=== PATIENT | female | born 1980 | race Caucasian/White ===

== ENCOUNTER 2017-01-12 14:56 | Inpatient (IN) | payer SELFPAY ==
[~2017-01-12] VITALS: Ht 179.1 cm; Wt 88.2 kg
[2017-01-12 16:09] VITALS: BP 121/84; PULSE 84
--- NOTE | 2017-01-12 17:13 | RADRPT ---
PROCEDURE: US bilateral lower extremity veins. CLINICAL INDICATION: Bilateral leg pain and swelling. The patient is 35 weeks . TECHNIQUE: Multiple longitudinal and transverse images of the bilateral lower extremity veins were obtained with renee scale and color Doppler imaging. The common femoral vein, femoral vein, and popl iteal vein were evaluated. 2D grayscale measurements with compression sonography, color Doppler, and pulsed Doppler with augmentation. COMPARISON: No prior studies are available for comparison. FINDINGS: The right common femoral, femoral and popliteal veins are normally compressible throughout. Color f low demonstrates normal filling of the vessels. Normal waveforms are visualized and there is normal response to augmentation. On the left side, there is lack of flow and lack of compressibility involving the common femoral vei n, femoral vein, and popliteal vein. The veins are dilated and contain echogenic thrombus. IMPRESSION: 1. Normal deep venous system of the right lower extremity. 2. Extensive acute deep venous thrombosis of the left lower extremity involving the common femoral vein, femoral vein, and popliteal vein. Call report: A preliminary call report of the findings was made to the patient's nurse Courtney on 01/12/2017 at 1700 hours. RPTAT: QQ .Stan Ordonez MD, MD Date Time Electronically viewed and signed by .Stan Ordonez MD, MD on 01/12/2017 17:13 .R/
--- NOTE | 2017-01-12 17:31 | TRIAGE ---
OB Triage Datetime Report Generated by CPN: 01/12/2017 17:31 Datetime: 01/12/2017 16:52 Time of Arrival: 01/12/2017 15:00 Chief Complaint: PAIN ON LT CALF,FROM LEFT GROIN DOWN THE TIP OF HER TOES,BILATERAL PEDAL EDEMA NO CHARU Movement: Present Contractions: Denies/Absent Contractions: NONE PALPATED Rupture of Membranes: Denies Vaginal Bleeding: None Vaginal Discharge: Present Recent Sexual Intercouse: Denies Abdominal Trauma: Not Applicable Patient Complaints: Other Time Provider Notified: 01/12/2017 15:30 Initial Plan: EFM,V/S Datetime: 01/12/2017 15:50 Labor Evaluation Frequency: 0 Monitor Mode: External Resting Tone Holiday: Relaxed Heart Rate FHR Baseline Rate: 140 Monitor Mode: External US Datetime: 01/12/2017 15:16 Stage of : OB Triage Assessment Type: Triage Maternal Assessment Level of Consciousness: Fully Conscious DTR's/Clonus: DTRs 2+; No Clonus Headache: Denies Blurred Vision: No Respiratory Effort: Unlabored; Regular Rhythm; Equal Expansion Breath Sounds, Left: Clear and Equal Breath Sounds, Right: Clear and Equal Nausea/Vomiting: Denies RUQ Epigastric Pain: Denies Lower Extremities Edema: None Degree: None Upper Extremities Edema: None Degree: 3+ Facial Edema: None Temperature Route: Axillary Fall Risk Assessment History of Falling: (0) No Secondary Diagnosis: (0) No Ambulatory Aid: (0) Bedrest/Nurse Assist IV Therapy: (0) No Gait: (0) Normal/Bedrest/Immobile Mental Status: (0) Oriented to Own Ability Fall Score: 0 Fall Risk Score Definition: No Risk: No action required
--- NOTE | 2017-01-12 17:37 | HP ---
Date/Time of Note Date/Time of Note DATE: 01/12/17 TIME: 17:23 OB - History Hx of Present Free Text/Dictation 36 y.o. with an IUP at 35 weeks 1 day sent in to the hospital from the office to rule out a deep vein thrombosis in her left leg as the entire leg, upper and lower, is very swollen and very tender. Pt has a baby for adoption and just returned from [place] last night to stay until delivery of her baby. She is accompanied by the adopting father. Pt was hospitalized twice recently for extreme nausea and vomiting and was just discharged last week. Apparently she was at home not ingesting much fluids and not moving around much to minimize the issues with the nausea and vomiting and says the leg pain started yesterday before she got on the plane. Pt reports the baby moving normally. She denies any shortness of breath. Chief Complaint: , severe swelling and pain of left leg Estimated Due Date: Feb 15, 2017 : 10 Para: 9 Care: Limited Care Ultrasounds: Normal mid trimester US Obstetrical Complications: None Medical Complications: None Other Concerns: PMHx: none. PSHx: none. NKDA. Past Family/Social History * Past Medical, Surgical, Family and Obstetric Histories reviewed from chart. Blood Type: A+ Rubella: immune RPR/VDRL: Negative GBS Status: Unknown HBsAG: Negative OB Admission Exam Vital Signs Vital Signs Vital Signs Date Time Temp Pulse Resp B/P Pulse Ox O2 Delivery O2 Flow Rate FiO2 01/12/17 16:09 98.0 84 121/84 High Flow Physical Exam HEENT: WNL Heart: Rhythm Normal Lungs: Clear Abdomen: WNL Extremities: Other (Severe swelling and pain of entire left leg) Cervical Dilatation: other (Deferred) Heart Rate: 140's Accelerations: Accelerations Present Decelerations: No Decelerations Varibility: Moderate Contractions on Admission: None Last 72 hours Lab Results Verbal doppler study results consistent with a DVT OB Assessment/Plan Reason for admission: other (Deep vein thrombosis of the left leg) Other plan: Spoke to the Hospitalist, Dr Nino, and either he or the next hospitalist to follow will see the pt promptly to initiate heparin therapy. IV hydration. D-Dimers. Bedrest. JAVIER FREITAS MD Jan 12, 2017 17:33
[2017-01-12] MEDS: LACTATED RINGER'S 1,000 ML IV SCH ×2 (17:42→22:43)
[2017-01-12] MEDS ORDERED: FAMO20TA18 PO (18:35)
[2017-01-12] MEDS ORDERED: ZOF8 PO (18:37)
--- NOTE | 2017-01-12 19:22 | CONS ---
Date/Time of Note Date/Time of Note DATE: 01/12/17 TIME: 19:15 Assessment/Plan Assessment/Plan Chief Complaint/Hosp Course 1. Left lower extremity DVT in a patient with a gestation at 35 weeks -No clinical evidence of PE at this time -Start Lovenox, patient to be discharged with Lovenox 1 mg/kg subcu every 12 hours until her is completed and then she can transition to Xarelto or Eliquis for 3 months as she is not planning on breast-feeding -Nurse informed to educate patient on how to self administer Lovenox and patient does understand that she will be self administering Lovenox -Of note patient's child is to be adopted Prophylaxis: Lovenox Problems: Consultation Date/Type/Reason Admit Date/Time Jan 12, 2017 at 17:15 Hx of Present Illness Patient is a 36-year-old female with no significant medical history. Patient has had 10 prior pregnancies and is currently 35 weeks . Patient developed left lower extremity swelling over the past 2 days patient has no history of such swelling. Ultrasound does confirm DVT, patient denies any chest pain or shortness of breath. Patient has no history of DVT in the past, patient has no other acute complaints at this time. Constitutional: improved, no complaints Eyes: no complaints ENT: no complaints Respiratory: no complaints Cardiovascular: no complaints Gastrointestinal: no complaints Genitourinary: no complaints Musculoskeletal: swelling (Left leg) Skin: no complaints Neurologic: no complaints Endocrine: no complaints Lymphatic: no complaints Psychological: nl mood/affect, no complaints Immunologic: no complaints Past Medical History Medical History: no pertinent history Family History Significant Family History: no pertinent family hx Social History Alcohol Use: rarely Smoking Status: Former smoker Drug Use: none Exam/Review of Systems Vital Signs Vitals Vital Signs Date Time Temp Pulse Resp B/P Pulse Ox O2 Delivery O2 Flow Rate FiO2 01/12/17 16:09 98.0 84 121/84 High Flow Exam Constitutional: alert, oriented Head: normocephalic Respiratory: clear to auscultation Cardiovascular: regular rate and rhythm Gastrointestinal: soft, No distended Musculoskeletal: nl extremities to inspection Medications Medications Current Medications Lactated Ringer's (Lr) 1,000 ml @ 125 mls/hr Q8H IV Last administered on t 17:42; Admin Dose 125 MLS/HR; Start 01/12/17 at 15:30 CONRADO GARRETT Jan 12, 2017 19:22
[2017-01-12] MEDS ORDERED: NACL 0.9% 3 ML SYG IV SCH (19:30)
[2017-01-12] MEDS ORDERED: ACETAMINOPHEN 500 MG TAB PO PRN (20:00)
[2017-01-12] MEDS ORDERED: ONDANSETRON 4 MG INJ IV PRN (20:00)
[2017-01-12] MEDS: morphine 2 MG INJ IV PRN (20:26)
[2017-01-12] MEDS: ENOXAPARIN 100 MG/ML SYG SC SCH (21:09)
[2017-01-12] MEDS ORDERED: AL HYDROX/MG HYDROX/SIMETH 30 ML CUP PO PRN (22:00)
--- NOTE | 2017-01-12 22:17 | QN ---
Documentation Comment Note: Pt repoprts that she was notified by the [facility] in [place] today that she tested positive for syphilis and she needed to get 3 shots of Penicillin. Pt told them she was in [place]. Pt was screened in October by me and had a negative RPR. Pt reports she had syphilis about 10 years ago and she and her partner were treated. She has not had sex since she was here last, nor for several months prior. Will repeat the RPR and do a FTA-ABS in the AM. JAVIER FREITAS MD Jan 12, 2017 22:17
[2017-01-12] MEDS ORDERED: CITRIC ACID/NA CITRATE 30 ML CUP ONE (22:25)
[2017-01-12] MEDS: CITRIC ACID/NA CITRATE 30 ML CUP PO SCH (22:44)
[2017-01-12] MEDS: ZOLPIDEM 5 MG TAB PO PRN (22:45)
[2017-01-13] MEDS: morphine 2 MG INJ IV PRN ×9 (04:09→22:22)
[2017-01-13 06:20] LABS: BASOPHILS % 0.4 % (0.0-2.0); EOSINOPHILS # 0.2 10^3/ul (0.0-0.5); EOSINOPHILS % 2.1 % (0.0-7.0); HEMATOCRIT 31.3 % (37.0-47.0); HEMOGLOBIN 10.2 g/dl (12.0-16.0); LYMPHOCYTES # 1.2 10^3/ul (0.8-2.9); LYMPHOCYTES % 16.8 % (15.0-51.0); MEAN CORPUSCULAR HEMOGLOBIN 27.9 pg (29.0-33.0); MEAN CORPUSCULAR HGB CONC 32.6 g/dl (32.0-37.0); MEAN CORPUSCULAR VOLUME 85.8 fl (82.0-101.0); MEAN PLATELET VOLUME 9.5 fl (7.4-10.4); MONOCYTE # 0.5 10^3/ul (0.3-0.9); MONOCYTES % 6.5 % (0.0-11.0); NEUTROPHIL # 5.1 10^3/ul (1.6-7.5); NEUTROPHILS % 72.1 % (39.0-77.0); PLATELET COUNT 237 10^3/UL (140-415); RED BLOOD COUNT 3.65 10^6/ul (4.20-5.40); RED CELL DISTRIBUTION WIDTH 14.2 % (11.5-14.5); WHITE BLOOD COUNT 7.1 10^3/ul (4.8-10.8)
[2017-01-13 06:58] LABS: ALBUMIN 2.5 g/dl (3.3-4.9); ALBUMIN/GLOBULIN RATIO 0.8; BILIRUBIN,INDIRECT 0.2 mg/dl (0-1.1); BILIRUBIN,TOTAL 0.2 mg/dl (0.2-1.3); CALCIUM 8.5 mg/dl (8.4-10.2); CREATININE 0.56 mg/dl (0.44-1.00); MAGNESIUM 1.4 mg/dl (1.7-2.5); PHOSPHORUS 2.9 mg/dl (2.5-4.9); POTASSIUM 3.3 mmol/L (3.5-5.1); TOTAL PROTEIN 5.6 g/dl (6.1-8.1)
[2017-01-13] MEDS: LACTATED RINGER'S 1,000 ML IV SCH ×2 (07:46→17:28)
[2017-01-13 08:14] VITALS: Ht 179.1 cm; Wt 88.2 kg
[2017-01-13 08:33] VITALS: BP 110/64; PULSE 76
[2017-01-13] MEDS: ENOXAPARIN 100 MG/ML SYG SC SCH ×2 (09:18→21:29)
[2017-01-13] MEDS ORDERED: POTASSIUM CHLORIDE (SR) 20 MEQ TAB PO STA (09:44)
[2017-01-13] MEDS ORDERED: MAGNESIUM SULFATE 4 GM/100 ML 100 ML IVPB ONE (10:00)
--- NOTE | 2017-01-13 14:15 | PN ---
Date/Time of Note Date/Time of Note DATE: 01/13/17 TIME: 14:13 Assessment/Plan VTE Prophylaxis VTE Prophylaxis Intervention: LMWH Lines/Catheters IV [facility] Peripheral IV Assessment/Plan Chief Complaint/Hosp Course 1. Left lower extremity DVT in a patient with gestation at 35 weeks -No clinical evidence of PE at this time -Continue therapeutic Lovenox, patient to be discharged with Lovenox 1 mg/kg subcu every 12 hours until her is completed and then she can transition to Xarelto or Eliquis for 3 months as she is not planning on breast- feeding -Nurse informed to educate patient on how to self administer Lovenox and patient does understand that she will be self administering Lovenox -Of note patient's child is to be adopted -Have consulted vascular surgery with Dr. Lomas for possible thrombectomy if indicated Prophylaxis: Lovenox Problems: Subjective 24 Hr Interval Summary Musculoskeletal: swelling (Left leg) Exam/Review of Systems Vital Signs Vitals Vital Signs Date Time Temp Pulse Resp B/P Pulse Ox O2 Delivery O2 Flow Rate FiO2 01/13/17 08:33 98.1 76 110/64 01/12/17 16:09 High Flow Intake and Output 01/12/17 01/12/17 01/13/17 15:00 23:00 07:00 Intake Total 1138 ml 995 ml Output Total 370 ml 100 ml Balance 768 ml 895 ml Exam Constitutional: alert, oriented Respiratory: clear to auscultation Gastrointestinal: soft, No distended Musculoskeletal: No nl extremities to inspection (Left leg swelling) Results Result Diagram: 01/13/17 0527 01/13/1727 Results 24 hrs Laboratory Tests Test 01/13/17 05:27 White Blood Count 7.1 Red Blood Count 3.65 L Hemoglobin 10.2 L Hematocrit 31.3 L Mean Corpuscular Volume 85.8 Mean Corpuscular Hemoglobin 27.9 L Mean Corpuscular Hemoglobin Concent 32.6 Red Cell Distribution Width 14.2 Platelet Count 237 Mean Platelet Volume 9.5 Neutrophils % 72.1 Lymphocytes % 16.8 Monocytes % 6.5 Eosinophils % 2.1 Basophils % 0.4 Nucleated Red Blood Cells % 0.0 Neutrophils # 5.1 Lymphocytes # 1.2 Monocytes # 0.5 Eosinophils # 0.2 Basophils # 0.0 Nucleated Red Blood Cells # 0.0 Sodium Level 132 L Potassium Level 3.3 L Chloride Level 104 Carbon Dioxide Level 20 L Anion Gap 11 Blood Urea Nitrogen 3 L Creatinine 0.56 Glucose Level 71 Hemoglobin A1c 4.9 Calcium Level 8.5 Phosphorus Level 2.9 Magnesium Level 1.4 L Total Bilirubin 0.2 Direct Bilirubin 0.00 Indirect Bilirubin 0.2 Aspartate Amino Transf (AST/SGOT) 11 L Alanine Aminotransferase (ALT/SGPT) 27 Alkaline Phosphatase 172 H Total Protein 5.6 L Albumin 2.5 L Globulin 3.10 Albumin/Globulin Ratio 0.80 Medications Medications Current Medications Lactated Ringer's (Lr) 1,000 ml @ 125 mls/hr Q8H IV Last administered on 07:46; Admin Dose 125 MLS/HR; Start 01/12/17 at 15:30 Enoxaparin Sodium (Lovenox) 90 mg Q12 SC Last administered on 01/13/17 09:18; Admin Dose 90 MG; Start 01/12/17 at 21:00 Ondansetron HCl (Zofran Inj) 4 mg Q6H PRN IV NAUSEA AND/OR VOMITING Last administered on 01/12/17 20:25; Admin Dose 4 MG; Start 01/12/17 at 20:00 Morphine Sulfate (morphine) 2 mg Q4H PRN IV SEVERE PAIN LEVEL 7-10 Last administered on 01/13/17 09:22; Admin Dose 2 MG; Start 01/12/17 at 20:00 Acetaminophen (Tylenol Tab) 500 mg Q6H PRN PO PAIN AND OR ELEVATED TEMP; Start 01/12/17 at 20:00 Al Hydrox/Mg Hydrox/Simethicone (Mag-Al Plus) 30 ml Q4H PRN PO GASTROINTESTINAL UPSET; Start 01/12/17 at 22:00 Citric Acid/ Sodium Citrate (Bicitra) 30 ml BID PO Last administered on 22:44; Admin Dose 30 ML; Start 01/13/17 at 21:00 Zolpidem Tartrate (Ambien) 10 mg HS PRN PO INSOMNIA Last administered on 22:45; Admin Dose 10 MG; Start 01/12/17 at 22:00 Influenza Virus Vaccine (Fluzone) 0.5 ml ONCE ONCE IM* ; Start 9/28/17 at 09:00 ; Stop 01/14/17 at 09:01 CONRADO GARRETT Jan 13, 2017 14:15
[2017-01-13 14:21] LABS: BARBITURATES Negative (NEGATIVE); BENZODIAZEPINES Negative (NEGATIVE); CANNABINOIDS Positive (NEGATIVE); COCAINE Negative (NEGATIVE); OPIATES Positive (NEGATIVE)
--- NOTE | 2017-01-13 19:04 | CONS ---
DATE OF ADMISSION: 01/12/2017 DATE OF CONSULTATION: 01/13/2017 REASON FOR CONSULTATION: For recommendations regarding left lower extremity DVT in this 36-year-old woman who is 35 weeks' . HISTORY OF PRESENT ILLNESS: This is a very pleasant 36-year-old, otherwise healthy woman who has had 10 prior pregnancies. She is currently 35 weeks' and went to see her DEVELOPMENTAL WRITING INSTRUCTOR yesterday with a swollen left leg and some pain in the left groin and was found to have a DVT involving the left common femoral and popliteal veins. She was admitted and started on subcu Lovenox 90 mg/kg b.i.d. last night. She got this last night and then this morning. She is otherwise healthy. She denies any other medical issues. She has never had any history of clotting abnormalities. She has had 10 prior pregnancies and never had any trouble with clotting during any of them. She had no history of varicose veins and she denies having any history of significant swelling in the left leg. MEDICATION: Currently consist of Lovenox 98 mg subcu b.i.d. It is 1 mg/kg subcu b.i.d. dose. PAST SURGICAL HISTORY: She has never had any surgery in the past. SOCIAL HISTORY: She lives in [place]. She came here because she is going to put the baby up for adoption. I think she is coming to deliver here for the adoptive family. She drinks alcohol rarely. She is a former smoker. Not currently. FAMILY HISTORY: Noncontributory. REVIEW OF SYSTEMS: She currently denies any chest pain, shortness of breath. No nausea, vomiting, diarrhea. No fever, no chills. No recent weight gain, no weight loss. She was having some nausea and vomiting last week, and became dehydrated and actually did go to the emergency room and was in the hospital, I believe it was in [place] prior to all this happening. PHYSICAL EXAMINATION: GENERAL: She is a middle-aged woman. She is an [place] speaker. She is in no distress. VITAL SIGNS: She has been afebrile. Her blood pressure is 110/64, heart rate 76, respiratory rate is 20. She has 2+ carotid pulses bilaterally, 2+ radial and brachial pulses bilaterally. LUNGS: Clear. HEART: Regular rate and rhythm. ABDOMEN: Gravid. EXTREMITIES: She has 2+ femoral, popliteal, DP and PT pulses bilaterally on the right. There is no edema. On the left, she has 2 to 3+ edema from the thigh all the way down to the foot. The compartments of the calf and the foot are all very soft. Thigh is very soft although edematous. She has normal motor and sensory function in the foot. The toes are warm and pink and well perfused and again a very strong pedal pulses bilaterally. She has no difficulty moving the leg. She just kind of complains of a dull ache throughout the left leg. She currently is not in any compression. Again, I reviewed her venous duplex scan, which shows normal right lower extremity. And on the left there is an acute DVT from the common femoral down into the popliteal, it is fully occlusive. IMPRESSION AND PLAN: Acute left femoral and popliteal vein deep venous thrombosis. It does not involve the pelvic veins and I recommend continuing the Lovenox for now. I think once she gets closer to delivery she probably needs to be admitted again and started on heparin. I have given the orders for the nurse to apply 2 layers of thigh-high the thromboembolic deterrent stockings to the left leg, it would approximate 30-40 mm of compression which is what she should be in. I have recommended she keep the left leg elevated when in bed on several pillows to help decrease the edema along with the stockings and then for today, I would keep her on bed rest and tomorrow after she has been adequately anticoagulated for more than 24 hours then she should get up and ambulate and from then on either be ambulating or in bed with the leg elevated and no sitting or keeping the leg down. I discussed that at length with her and she understands. There is no indication for a vena cava filter and she is not to be kept on strict bed rest. She should get up and ambulate. It would lower the incidence of pulmonary embolus and helped the thrombus resolve more quickly. She will need to stay on anticoagulation for a good 6 months after delivery, at that point she could be transitioned to Coumadin or one of novel oral anticoagulants at that time. I discussed that with her as well. Dictated By: Merrill Lomas MD /[email or web address] /Document#: [id number] CC: Deacon Nino MD; Chandra Ca MD;*[facility]*
[2017-01-13] MEDS ORDERED: morphine 2 MG INJ IV PRN (21:09)
[2017-01-13] MEDS: ZOLPIDEM 5 MG TAB PO PRN (21:28)
[2017-01-13] MEDS: CITRIC ACID/NA CITRATE 30 ML CUP PO SCH (21:29)
--- NOTE | 2017-01-14 00:08 | QN ---
Documentation Comment HD #1 IUP at 35 weeks, Left leg DVT. Pt still in a lot of pain but is in good spirits. Franco Nino and Cesilia saw the pt today and all input appreciated. No SOB.On Lovenox. NST reactive. P: D/C tomorrow hopefully as this is an adoption and the adoptive parents are paying for everything. Understand, and am glad, the pt is not a candidate for surgery.I believe the pt will be compliant with all instructions at d/c. JAVIER FREITAS MD Jan 14, 2017 00:08
[2017-01-14] MEDS: morphine 2 MG INJ IV PRN ×5 (01:37→15:02)
[2017-01-14] MEDS: LACTATED RINGER'S 1,000 ML IV SCH ×2 (02:43→11:08)
[2017-01-14 06:43] LABS: ANION GAP 6 (8-16); CALCIUM 8.5 mg/dl (8.4-10.2); CARBON DIOXIDE 25 mmol/L (21-31); CHLORIDE 104 mmol/L (97-110); CREATININE 0.57 mg/dl (0.44-1.00); GLUCOSE 76 mg/dl (70-220); MAGNESIUM 1.5 mg/dl (1.7-2.5); POTASSIUM 3.7 mmol/L (3.5-5.1); SODIUM 131 mmol/L (135-144)
[2017-01-14 06:44] LABS: BLOOD UREA NITROGEN < 2 mg/dl (7-20)
[2017-01-14] MEDS ORDERED: INFLUENZA VIRUS VACCINE 0.5 ML SYG IM* ONE (09:00)
[2017-01-14] MEDS: ENOXAPARIN 100 MG/ML SYG SC SCH ×2 (09:34→21:12)
[2017-01-14] MEDS ORDERED: MAGNESIUM SULFATE 4 GM/100 ML 100 ML IVPB ONE (10:00)
[2017-01-14] MEDS ORDERED: FAMOTIDINE 20 MG INJ IV SCH (11:00)
[2017-01-14] MEDS: SENNA TAB PO PRN (11:06)
[2017-01-14] MEDS: DOCUSATE SODIUM 100 MG CAP PO PRN (11:06)
--- NOTE | 2017-01-14 15:41 | PN ---
Date/Time of Note Date/Time of Note DATE: 01/14/17 TIME: 15:37 Assessment/Plan VTE Prophylaxis VTE Prophylaxis Intervention: LMWH Lines/Catheters IV Catheter Type (from [facility]): Peripheral IV Assessment/Plan Chief Complaint/Hosp Course 1. Left lower extremity DVT in a patient with gestation at 35 weeks-patient continues to have difficulty ambulating secondary to pain -No clinical evidence of PE at this time -Continue therapeutic Lovenox, patient to be discharged with Lovenox 1 mg/kg subcu every 12 hours until her is completed and then she can transition to Coumadin, Xarelto or Eliquis for 6 months as she is not planning on breast-feeding, patient will need to be on a heparin drip prior to delivery -Nurse informed to educate patient on how to self administer Lovenox and patient does understand that she will be self administering Lovenox -Of note patient's child is to be adopted -Vascular surgery consult with Dr. Lomas appreciated, stockings had been placed , continue ambulation as able and elevation of leg -Monitor overnight, possible DC tomorrow if patient able to ambulate Prophylaxis: Lovenox Problems: Subjective 24 Hr Interval Summary Musculoskeletal: restricted range of motion (Left leg) Exam/Review of Systems Vital Signs Vitals Vital Signs Date Time Temp Pulse Resp B/P Pulse Ox O2 Delivery O2 Flow Rate FiO2 01/13/17 08:33 98.1 76 110/64 01/12/17 16:09 High Flow Intake and Output 01/13/17 01/13/17 01/14/17 15:00 23:00 07:00 Intake Total 1019 ml 2450 ml 940 ml Output Total 100 ml 1530 ml Balance 919 ml 920 ml 940 ml Exam Constitutional: alert, oriented Head: normocephalic Respiratory: clear to auscultation Cardiovascular: regular rate and rhythm Gastrointestinal: soft, No distended Musculoskeletal: No nl extremities to inspection Extremities: calf tenderness (Left leg) Results Result Diagram: 01/13/17 0527 01/14/17 0540 Results 24 hrs Laboratory Tests Test 01/14/17 05:40 Sodium Level 131 L Potassium Level 3.7 Chloride Level 104 Carbon Dioxide Level 25 Anion Gap 6 L Blood Urea Nitrogen < 2 L Creatinine 0.57 Glucose Level 76 Calcium Level 8.5 Magnesium Level 1.5 L Medications Medications Current Medications Lactated Ringer's (Lr) 1,000 ml @ 125 mls/hr Q8H IV Last administered on 11:08; Admin Dose 125 MLS/HR; Start 01/12/17 at 15:30 Enoxaparin Sodium (Lovenox) 90 mg Q12 SC Last administered on 01/14/17 09:34; Admin Dose 90 MG; Start 01/12/17 at 21:00 Ondansetron HCl (Zofran Inj) 4 mg Q6H PRN IV NAUSEA AND/OR VOMITING Last administered on 01/12/17 20:25; Admin Dose 4 MG; Start 01/12/17 at 20:00 Morphine Sulfate (morphine) 2 mg Q4H PRN IV SEVERE PAIN LEVEL 7-10 Last administered on 01/14/17 15:02; Admin Dose 2 MG; Start 01/12/17 at 20:00 Acetaminophen (Tylenol Tab) 500 mg Q6H PRN PO PAIN AND OR ELEVATED TEMP; Start 01/12/17 at 20:00 Al Hydrox/Mg Hydrox/Simethicone (Mag-Al Plus) 30 ml Q4H PRN PO GASTROINTESTINAL UPSET; Start 01/12/17 at 22:00 Citric Acid/ Sodium Citrate (Bicitra) 30 ml BID PO Last administered on 22:44; Admin Dose 30 ML; Start 01/13/17 at 21:00 Zolpidem Tartrate (Ambien) 10 mg HS PRN PO INSOMNIA Last administered on 21:28; Admin Dose 10 MG; Start 01/12/17 at 22:00 Morphine Sulfate (morphine) 2 mg Q3H PRN IV PAIN; Start 01/13/17 at 21:09 Docusate Sodium (Colace) 200 mg BID PRN PO CONSTIPATION Last administered on 11:06; Admin Dose 200 MG; Start 01/14/17 at 10:30 Senna (Senokot) 2 tab DAILY PRN PO CONSTIPATION Last administered on 01/14/17 11:06; Admin Dose 2 TAB; Start 01/14/17 at 11:00 Famotidine (Pepcid Iv) 20 mg DAILY IV Last administered on 01/14/17 11:05; Admin Dose 20 MG; Start 01/14/17 at 11:00 CONRADO GARRETT Jan 14, 2017 15:41
--- NOTE | 2017-01-14 18:28 | QN ---
Documentation Comment HD #2 Pt still in a lot of pain and unable to get up and put any pressure on that foot. Was given compression stockings yesterday that were too small (size large ) and pt was not able to sleep due to the pain of the compression(!)and has been refitted today with extra large and it is much better.Pt had been in good spirits previously but is now tired and in pain and worried about the indications of what could have occurred if she hadn't been seen the day of admission. No SOB. No BM since admit. NST reactive. VS stable. Right leg with a compression stocking and non-tender. Left leg w/o change and still exquisitely tender. P: Bedside commode and PT to see pt to teach her how to transfer until she is able to walk some. Pt will be having her daughter come to stay with her for a week when she is discharged and then her mother after that. Stool softeners and laxatives to the pt. JAVIER FREITAS MD Jan 14, 2017 18:28
[2017-01-14] MEDS: HYDROCODONE/APAP (10/325) TAB PO PRN ×2 (19:33→23:42)
[2017-01-14 19:46] LABS: FLUORESCENT TREPONEMAL AB REACTIVE (NON-REACTIVE)
[2017-01-14] MEDS: CITRIC ACID/NA CITRATE 30 ML CUP PO SCH (21:00)
[2017-01-14] MEDS: ZOLPIDEM 5 MG TAB PO PRN (21:14)
[2017-01-15] MEDS: HYDROCODONE/APAP (10/325) TAB PO PRN ×4 (04:13→16:53)
[2017-01-15 06:47] LABS: ANION GAP 6 (8-16); CALCIUM 8.2 mg/dl (8.4-10.2); CARBON DIOXIDE 28 mmol/L (21-31); CHLORIDE 105 mmol/L (97-110); CREATININE 0.55 mg/dl (0.44-1.00); GLUCOSE 88 mg/dl (70-220); MAGNESIUM 1.9 mg/dl (1.7-2.5); POTASSIUM 4.2 mmol/L (3.5-5.1); SODIUM 135 mmol/L (135-144)
[2017-01-15 06:49] LABS: BLOOD UREA NITROGEN < 2 mg/dl (7-20)
[2017-01-15] MEDS: DOCUSATE SODIUM 100 MG CAP PO PRN (08:19)
[2017-01-15] MEDS: SENNA TAB PO PRN (08:20)
[2017-01-15] MEDS: ENOXAPARIN 100 MG/ML SYG SC SCH (08:25)
[2017-01-15] MEDS ORDERED: FAMOTIDINE 20 MG TAB PO SCH (09:00)
--- NOTE | 2017-01-15 16:50 | PD.PPDC ---
[employer] Discharge Instruction Condition Patient Condition: Fair Diet Diet: Resume Regular Diet Activity/Restrictions Activity: Bedrest May be up to bathroom May be up for meals May Shower Restrictions: No Exercising (but pt is to walk as tolerated) No Lifting No Driving Minimize Stair-climbing No Sexual Activity Nothing in the Vagina No [employer] No Tampons, douche Follow-up Follow-up with Physician: 6 Return to clinic for Comment: Call for any abnormal bleeding, increasing leg pain, contractions or decreased movement. JAVIER FREITAS MD Jan 15, 2017 16:50
[2017-01-15] MEDS ORDERED: Hydrocodone/Apap (10/325) PO (16:52)
[2017-01-15] MEDS ORDERED: ENOX100D2 SC (16:52)
--- NOTE | 2017-01-15 16:55 | DS ---
Date/Time of Note Date/Time of Note DATE: 01/15/17 TIME: 16:52 Obstetrical Discharge Record Final Diagnosis Final Diagnosis: not delivered Other Final Diagnosis Left leg deep vein thrombosis Complications Other (Left leg DVT) Augmentation: No Induction: No Condition on Discharge Physical Assessment Last Vitals: VSS Voiding: Yes Bowel Movement: No Breast: Soft, non-tender Fundus: Other (Gravid, NT) Calf Tenderness: Yes (Left leg has a DVT but the swelling has decreased and the pain has decreased) Patient Condition: JAVIER Sparks MD Jan 15, 2017 16:55
[2017-01-15] MEDS ORDERED: BISACODYL 10 MG SUPP PR ONE (17:00)
--- NOTE | 2017-01-15 19:37 | PN ---
Date/Time of Note Date/Time of Note DATE: 01/15/17 TIME: 19:34 Assessment/Plan VTE Prophylaxis VTE Prophylaxis Intervention: LMWH Lines/Catheters IV Catheter Type (from Nrs): Peripheral IV Assessment/Plan Chief Complaint/Hosp Course 1. Left lower extremity DVT in a patient with gestation at 35 weeks- improved -No clinical evidence of PE at this time -Continue therapeutic Lovenox, patient to be discharged with Lovenox 1 mg/kg subcu every 12 hours until her is completed and then she can transition to Coumadin, Xarelto or Eliquis for 6 months as she is not planning on breast-feeding, patient will need to be on a heparin drip prior to delivery -Nurse informed to educate patient on how to self administer Lovenox and patient does understand that she will be self administering Lovenox -Of note patient's child is to be adopted -Vascular surgery consult with Dr. Lomas appreciated, stockings had been placed , continue ambulation as able and elevation of leg -Stable for DC today per medicine 2. History of syphilis Prophylaxis: Lovenox Problems: Subjective 24 Hr Interval Summary Constitutional: no complaints Exam/Review of Systems Vital Signs Vitals Vital Signs Date Time Temp Pulse Resp B/P Pulse Ox O2 Delivery O2 Flow Rate FiO2 01/13/17 08:33 98.1 76 110/64 01/12/17 16:09 High Flow Intake and Output 01/14/17 01/14/17 01/15/17 15:00 23:00 07:00 Intake Total 2025 ml 725 ml Output Total 1400 ml 1050 ml 750 ml Balance 625 ml -325 ml -750 ml Exam Constitutional: alert, oriented Respiratory: clear to auscultation Cardiovascular: regular rate and rhythm Gastrointestinal: soft, No distended Musculoskeletal: No nl extremities to inspection Results Result Diagram: 01/13/17 0527 01/15/17 0556 Results 24 hrs Laboratory Tests Test 01/15/17 05:56 Sodium Level 135 Potassium Level 4.2 Chloride Level 105 Carbon Dioxide Level 28 Anion Gap 6 L Blood Urea Nitrogen < 2 L Creatinine 0.55 Glucose Level 88 Calcium Level 8.2 L Magnesium Level 1.9 Medications Medications Current Medications Enoxaparin Sodium (Lovenox) 90 mg Q12 SC Last administered on 01/15/17t 08:25; Admin Dose 90 MG; Start 01/12/17 at 21:00 Acetaminophen (Tylenol Tab) 500 mg Q6H PRN PO PAIN AND OR ELEVATED TEMP; Start 01/12/17 at 20:00 Al Hydrox/Mg Hydrox/Simethicone (Mag-Al Plus) 30 ml Q4H PRN PO GASTROINTESTINAL UPSET; Start 01/12/17 at 22:00 Citric Acid/ Sodium Citrate (Bicitra) 30 ml BID PO Last administered on 22:44; Admin Dose 30 ML; Start 01/13/17 at 21:00 Zolpidem Tartrate (Ambien) 10 mg HS PRN PO INSOMNIA Last administered on 21:14; Admin Dose 10 MG; Start 01/12/17 at 22:00 Docusate Sodium (Colace) 200 mg BID PRN PO CONSTIPATION Last administered on 08:19; Admin Dose 200 MG; Start 01/14/17 at 10:30 Senna (Senokot) 2 tab DAILY PRN PO CONSTIPATION Last administered on 01/15/17 08:20; Admin Dose 2 TAB; Start 01/14/17 at 11:00 Acetaminophen/ Hydrocodone Bitart ([place] (10/325)) 1 tab Q4H PRN PO PAIN Last administered on 01/15/17 16:53; Admin Dose 1 TAB; Start 01/14/17 at 19:30 Famotidine (Pepcid) 20 mg DAILY PO Last administered on 01/15/17 08:30; Admin Dose 20 MG; Start 01/15/17 at 09:00 CONRADO GARRETT Jan 15, 2017 19:37
== END 2017-01-15 19:50 | disposition home or self-care (01) | DRG 781 ==
LOC: OBT 14:56 → OBG 14:56 → OBT 17:15
PROVIDERS: ADMIT Obstetrics & Gynecology; ATTEND Obstetrics & Gynecology
PROC: 3E013GC Introduction of Other Therapeutic Substance into Subcutaneous Tissue, Percutaneous Approach (ICD-10-PCS; principal; 2017-01-12)
DX: O22.33 Deep phlebothrombosis in pregnancy, third trimester (principal); O98.113 Syphilis complicating pregnancy, third trimester; I82.412 Acute embolism and thrombosis of left femoral vein; I82.432 Acute embolism and thrombosis of left popliteal vein; O09.523 Supervision of elderly multigravida, third trimester; Z3A.35 35 weeks gestation of pregnancy; Z87.891 Personal history of nicotine dependence
CPT/HCPCS: 80048; 80053; 80307; 83036; 83735; 84100; 85025; 86592; 87285; 90686; 93970; 97161; G0463; J1650; J2270; J2405; J7120

== ENCOUNTER 2017-01-18 00:05 | Inpatient (IN) | END 2017-01-18 19:15 | disposition home or self-care (01) | DRG 781 | DX: O21.2 Late vomiting of pregnancy (principal); O22.33 Deep phlebothrombosis in pregnancy, third trimester; I82.4Z2 Acute embolism and thrombosis of unspecified deep veins of left distal lower extremity; Z79.01 Long term (current) use of anticoagulants; Z3A.35 35 weeks gestation of pregnancy ==

== ENCOUNTER 2017-02-08 06:00 | Inpatient (IN) | payer SELFPAY ==
[~2017-02-08] VITALS: Ht 177.8 cm; Wt 87.7 kg
[~2017-02-08 06:00] MED LIST: ENOX100D2 SC; FAMO20TA18 PO; Hydrocodone/Apap (10/325) PO; ZOF8 PO
[2017-02-08 07:21] VITALS: Ht 177.8 cm; Wt 87.7 kg
[2017-02-08 07:33] VITALS: BP 101/65; PULSE 77; RESP 20
[2017-02-08] MEDS: LACTATED RINGER'S 1,000 ML IV SCH ×3 (08:36→18:44)
[2017-02-08] MEDS ORDERED: OXYTOCIN 30 UNITS/LR 500 ML IV SCH ×3 (09:00)
[2017-02-08] MEDS ORDERED: CARBOPROST 250 MCG INJ IM PRN ×2 (09:00→20:00)
[2017-02-08] MEDS ORDERED: LACTATED RINGER'S 1,000 ML IV PRN (09:00)
[2017-02-08] MEDS ORDERED: LIDOCAINE 1% (MPF) 30 ML INJ INJ PRN (09:00)
[2017-02-08] MEDS ORDERED: IBUPROFEN 600 MG TAB PO PRN (09:00)
[2017-02-08] MEDS ORDERED: AMPICILLIN 2 GM/NS (PMX) 100 ML IV ONE (09:00)
[2017-02-08] MEDS ORDERED: BUTORPHANOL 2 MG INJ IV PRN ×2 (09:00)
[2017-02-08] MEDS ORDERED: METHYLERGONOVINE 0.2 MG INJ IM PRN ×2 (09:00→20:00)
[2017-02-08] MEDS ORDERED: MISOPROSTOL 200 MCG TAB PR PRN ×2 (09:00→20:00)
[2017-02-08] MEDS ORDERED: OXYTOCIN 30 UNITS/LR 500 ML IV PRN ×2 (09:00→20:00)
[2017-02-08 09:12] LABS: BASOPHILS % 0.5 % (0.0-2.0); EOSINOPHILS # 0.1 10^3/ul (0.0-0.5); EOSINOPHILS % 1.1 % (0.0-7.0); HEMATOCRIT 33.6 % (37.0-47.0); HEMOGLOBIN 11.2 g/dl (12.0-16.0); LYMPHOCYTES # 2.2 10^3/ul (0.8-2.9); LYMPHOCYTES % 24.5 % (15.0-51.0); MEAN CORPUSCULAR HEMOGLOBIN 28.9 pg (29.0-33.0); MEAN CORPUSCULAR HGB CONC 33.3 g/dl (32.0-37.0); MEAN CORPUSCULAR VOLUME 86.8 fl (82.0-101.0); MEAN PLATELET VOLUME 9.9 fl (7.4-10.4); MONOCYTE # 0.5 10^3/ul (0.3-0.9); MONOCYTES % 5.4 % (0.0-11.0); NEUTROPHIL # 5.9 10^3/ul (1.6-7.5); NEUTROPHILS % 66.6 % (39.0-77.0); PLATELET COUNT 191 10^3/UL (140-415); RED BLOOD COUNT 3.87 10^6/ul (4.20-5.40); RED CELL DISTRIBUTION WIDTH 15.6 % (11.5-14.5); WHITE BLOOD COUNT 8.9 10^3/ul (4.8-10.8)
[2017-02-08 09:26] LABS: INR 0.95; PROTIME 12.7 Sec (12.2-14.2)
[2017-02-08 09:27] LABS: PARTIAL THROMBOPLASTIN TIME 26.6 Sec (25.0-35.0)
[2017-02-08] MEDS ORDERED: MINERAL OIL LIGHT 10 ML VIAL TOP ONE (10:00)
[2017-02-08] MEDS: AMPICILLIN 1 GM/NS (PMX) 50 ML IV SCH ×2 (12:47→17:30)
[2017-02-08 13:30] LABS: BARBITURATES Negative (NEGATIVE); BENZODIAZEPINES Negative (NEGATIVE); CANNABINOIDS Positive (NEGATIVE); COCAINE Negative (NEGATIVE); OPIATES Negative (NEGATIVE)
[2017-02-08] MEDS ORDERED: HYDROmorphONE 0.5 MG/0.5 ML SYG IV PRN ×2 (15:00)
[2017-02-08] MEDS ORDERED: NALOXONE (0.4 MG/ML) INJ IV PRN (15:00)
[2017-02-08] MEDS ORDERED: FENTAnyl 2MCG/ML-ROPIV 0.2% 100 ML BAG EPI SCH (15:00)
[2017-02-08] MEDS ORDERED: ONDANSETRON 4 MG INJ IV PRN (15:00)
[2017-02-08] MEDS ORDERED: DIPHENHYDRAMINE 50 MG INJ IV PRN (15:00)
[2017-02-08] MEDS: OXYTOCIN 30 UNITS/LR 500 ML IV SCH ×2 (19:39→23:06)
[2017-02-08] MEDS ORDERED: LACTATED RINGER'S 1,000 ML IV* SCH (19:39)
--- NOTE | 2017-02-08 19:54 | LDN ---
Date/Time of Note Date/Time of Note DATE: 02/08/17 TIME: 19:52 Delivery Summary Vaccum assisted vaginal delivery due to heart rate decelerations of a viable baby boy weighing 3340 grams, or 7# 6 oz, 18.5" long, and with Apgars of 8/9. Weeks of Gestation 39w Assisted Vaginal Delivery: Vacuum Placenta Delivered: Spontaneously Meconium: none Episiotomy: No Estimated blood loss: 200 Sponge & Needle done & correct: Yes All needle counts correct: Yes Any foreign bodies felt in the: No (vagina) Problems: Delivery Information Sex Infant Sex: male Apgars 1 Minute: 8 5 Minute: 9 Suctioning Nose & mouth suctioned at sierra: Yes Delee suction performed: No Umbilical Cord Umbilical cord with: 3 Vessels Cord presentations: nuchal cord Nuchal cord present X: 1 Cord Blood was obtained: Yes Mother & Baby Disposition Disposition Mom & Baby to Maternity; Good: Yes Baby to NICU: No JAVIER FREITAS MD Feb 08, 2017 19:54
--- NOTE | 2017-02-08 20:07 | HP ---
Date/Time of Note Date/Time of Note DATE: 02/08/17 TIME: 19:54 OB - History Hx of Present Free Text/Dictation 36 y.o. A1 with an IUP at 39 weeks came in for induction of labor. Pt is giving this baby up for adoption and the adopting parents are present. Estimated Due Date: Feb 15, 2017 : 10 Para: 8 Spontaneous : 1 Therapeutic : 0 Care: Limited Care Ultrasounds: Normal mid trimester US Medical Complications: Other (Left leg DVT.) Other Concerns: PMHx: Left leg DVT: pt became dehydrated from vomting prior to her returning to [place] from [place] for delivery and developed a large DVT starting just before she got on the plane and was severe by the next day in my office. She was admitted to the hospital and has been on Lovenox BID since that time and has been wearing compression stockings. The sweeling has dimished greatly as well as the pain. She will continue on blood thinners for 6 months to a year depending on her doctor in [place]. Pt has a h/o Hepatitis C antibody positive which is a resolved infection and the Hep C RNA is negative i.e. she is not a chronic carrier. PSHx: none. NKDA. Past Family/Social History * Past Medical, Surgical, Family and Obstetric Histories reviewed from chart. Blood Type: A+ Rubella: immune RPR/VDRL: Negative GBS Status: Positive HBsAG: Negative OB Admission Exam Vital Signs Vital Signs Vital Signs Date Time Temp Pulse Resp B/P Pulse Ox O2 Delivery O2 Flow Rate FiO2 02/08/17 07:33 97.8 77 20 101/65 95 Room Air Physical Exam HEENT: WNL Heart: Rhythm Normal Lungs: Clear Extremities: Edema (Left leg with 1+ edema and both legs have compression stockings.) Reflexes: Normal Cervical Dilatation: 3cm Effacement: 75% Station: -3 Membranes: Intact Amniotic Fluid: Clear Heart Rate: 140's Accelerations: Accelerations Present Varibility: Moderate Contractions on Admission: 6-10 Minutes Apart Last 72 hours Lab Results CBC & BMP 02/08/17 08:44 02/08/17 08:55 OB Assessment/Plan Reason for admission: induction of labor Other Assessment: Left leg DVT. Plan: Induction Induction Method: per Pitocin Protocol Other plan: Pt took her Lovenox the morning before induction and did not take the evening one nor this morning and the meds will be restarted about 6 hours after delivery. JAVIER FREITAS MD Feb 08, 2017 20:04
[2017-02-08] MEDS ORDERED: ENOXAPARIN 100 MG/ML SYG SC SCH (21:00)
[2017-02-08 22:00] VITALS: BP 121/62; PULSE 70; RESP 20
[2017-02-08] MEDS: HYDROCODONE/APAP (5/325) TAB PO PRN (22:16)
[2017-02-09] MEDS: HYDROCODONE/APAP (5/325) TAB PO PRN ×6 (02:00→22:27)
[2017-02-09 05:02] VITALS: BP 120/66; PULSE 74; RESP 20
[2017-02-09] MEDS: ENOXAPARIN 100 MG/ML SYG SC SCH ×2 (05:55→18:04)
[2017-02-09 08:45] VITALS: BP 110/61; PULSE 84; RESP 17
[2017-02-09 10:46] LABS: BASOPHILS % 0.3 % (0.0-2.0); EOSINOPHILS # 0.1 10^3/ul (0.0-0.5); EOSINOPHILS % 0.7 % (0.0-7.0); HEMATOCRIT 35.6 % (37.0-47.0); HEMOGLOBIN 11.4 g/dl (12.0-16.0); LYMPHOCYTES # 2.3 10^3/ul (0.8-2.9); LYMPHOCYTES % 21.2 % (15.0-51.0); MEAN CORPUSCULAR HEMOGLOBIN 27.6 pg (29.0-33.0); MEAN CORPUSCULAR VOLUME 86.2 fl (82.0-101.0); MEAN PLATELET VOLUME 9.9 fl (7.4-10.4); MONOCYTE # 0.5 10^3/ul (0.3-0.9); MONOCYTES % 4.9 % (0.0-11.0); NEUTROPHIL # 7.6 10^3/ul (1.6-7.5); NEUTROPHILS % 71.3 % (39.0-77.0); PLATELET COUNT 180 10^3/UL (140-415); RED BLOOD COUNT 4.13 10^6/ul (4.20-5.40); RED CELL DISTRIBUTION WIDTH 15.8 % (11.5-14.5); WHITE BLOOD COUNT 10.7 10^3/ul (4.8-10.8)
[2017-02-09 12:00] VITALS: BP 116/71; PULSE 84; RESP 17
[2017-02-09 16:00] VITALS: BP 100/56; PULSE 78; RESP 16
[2017-02-09 20:00] VITALS: BP 122/82; PULSE 93; RESP 20
--- NOTE | 2017-02-09 23:36 | QN ---
Documentation Comment PPD #1 s/p Pt is doing well. In the room with the baby and feeding the baby formula. Is very happy with the adoptive parents. The adoptive parents are going home to sleep at night and not staying at the hospital. T=98.1 BP 100/56 Fundus is firm. Lochia moderate, dark. Extremities with compression stockings, left still slightly larger than the right. WBC 10.7 Hgb 11.4 Plts 180K. P: Plan d/c tomorrow. Spoke to pt about her f/u care due to the DVT and the need for detention anticoagulation therapy. Reviewed the different kinds of anticoagulant therapy. The oral med I would choose is Eliquis but the daniels isbell is double the cost of the Lovenox and the pt does not mind continuing the injections. Also I am not sure what will be covered by [employer] in her home state. Reviewed how to find a doctor and that I think an transformation coach should be able to handle the medication issue. Will send pt home with a one month supply of medication to give her time to find a doctor. JAVIER FREITAS MD Feb 09, 2017 23:36
[2017-02-10] MEDS: HYDROCODONE/APAP (5/325) TAB PO PRN ×3 (03:45→14:51)
[2017-02-10 04:00] VITALS: BP 100/61; PULSE 68; RESP 20
[2017-02-10] MEDS ORDERED: ENOXAPARIN 100 MG/ML SYG SC SCH (06:00)
[2017-02-10 07:50] VITALS: BP 115/70; PULSE 80; RESP 18
--- NOTE | 2017-02-10 15:12 | PD.PPDC ---
SENIOR BEHAVIORAL SCIENTIST Discharge Instruction Condition Patient Condition: Good Diet Diet: Resume Regular Diet Activity/Restrictions Activity: Normal Activity May Shower Restrictions: Nothing in the Vagina No [place] No Tampons, douche Follow-up Follow-up with Physician: 4, Week/Weeks Return to clinic for [employer] Instructions: Fever greater than 101 Chills Worsening abdominal pain Excessive Vaginal Bleeding OB Instructions: Breast Tenderness Depression JAVIER FREITAS MD Feb 10, 2017 15:12
--- NOTE | 2017-02-10 15:15 | DS ---
Date/Time of Note Date/Time of Note DATE: 02/10/17 TIME: 15:13 Obstetrical Discharge Record Final Diagnosis Final Diagnosis: Term delivered Vaginal Delivery Obstetrical Delivery: Spontaneous Complications Other (DVT in ) Augmentation: Yes Induction: Yes Condition on Discharge Physical Assessment Last Vitals: Afebrile VSS. Voiding: Yes Bowel Movement: Yes Breast: Soft, non-tender Fundus: Firm Calf Tenderness: Yes (Left leg DVT resolving, on anticoagulation therapy.) Patient Condition: Good JAVIER FREITAS MD Feb 10, 2017 15:15
== END 2017-02-10 16:15 | disposition home or self-care (01) | DRG 774 ==
LOC: L-D 06:44 → PP1 21:59
PROVIDERS: ADMIT Obstetrics & Gynecology; ATTEND Obstetrics & Gynecology
PROC: 3E0P3VZ Introduction of Hormone into Female Reproductive, Percutaneous Approach (ICD-10-PCS; 2017-02-08)
PROC: 10D07Z6 Extraction of Products of Conception, Vacuum, Via Natural or Artificial Opening (ICD-10-PCS; principal; 2017-02-08 06:00)
DX: O99.214 Obesity complicating childbirth (principal); O87.1 Deep phlebothrombosis in the puerperium; E66.01 Morbid (severe) obesity due to excess calories; Z68.27 Body mass index [BMI] 27.0-27.9, adult; O69.81X0 Labor and delivery complicated by cord around neck, without compression, not applicable or unspecified; Z3A.39 39 weeks gestation of pregnancy; Z37.0 Single live birth
CPT/HCPCS: 62319; 80307; 82565; 85025; 85610; 85730; 86592; 86900; 86901; 87340; 99464; J0290; J0595; J1650; J2590; J3010; J7120